=== PATIENT | female | born 1985 | race Caucasian/White ===

== ENCOUNTER 2016-08-20 20:55 | Emergency (ER) | payer OTHER ==
--- NOTE | 2016-08-20 22:15 | ED CLINICAL REPORT ---
Clinical Report - Physicians/Mid Levels [facility] [address] [place] [address] 08/20/2016 20:55 [id number] Time Seen: 22:29 Aug 20 2016. Arrived- By private vehicle. Historian- patient (SO). HISTORY OF PRESENT ILLNESS Location of injuries- (head). Chief Complaint: INJURY TO HEAD. The injury occurred just prior to arrival. Occurred on a street. The patient sustained a blow. Fell. The patient complains of mild pain. No neck pain, loss of consciousness or seizure. Not dazed. (Prior to arrival, patient sustained a blow to her head from a tree. Patient was outside walking a pit bull, when she was dragged by her arm, and into a tree. Denies loss of consciousness. Patient had headache at the time, however none since. Denies any arm pain. Denies any neck pain, Denies abdominal pain.). REVIEW OF SYSTEMS No hearing loss, chest pain or laceration. All systems otherwise negative, except as recorded above. PAST HISTORY Tetanus immunization status is up-to-date. SOCIAL HISTORY Never smoker. No alcohol use or drug use. ADDITIONAL NOTES The nursing notes have not been reviewed. PHYSICAL EXAM Vital Signs: 08/20/2016 22:04 BP: 134/79. HR: 77. RR: 16. O2 saturation: 100%. Temp: 98.1 F. Appearance: Alert. No acute distress. No backboard. Head: Head non-tender. Eyes: Pupils equal, round and reactive to light. EOM intact. No pupillary exam. ENT: No hemotympanum. Dental injury present. Neck: Painless ROM. Neck non-tender. No vertebral tenderness. Posterior neck: No tenderness or swelling. CVS: Heart sounds normal. Pulses normal. Respiratory: Breath sounds normal. Chest nontender. No chest wall injury. Abdomen: Soft. No abdominal tenderness or guarding. Back: No tenderness. ROM normal. Skin: (small erythema at R elbow, non tender, no vesicles, quarter size lesion). Extremities: Normal inspection. Pelvis stable. Neuro: Bernardo Coma Scale: 15- eyes open spontaneously (4); best verbal response- oriented x 3 (5); best motor response- obeys commands (6). Oriented X 3. Mood/affect normal. Speech normal. No motor deficit. No sensory deficit. PROGRESS AND PROCEDURES Course of Care: Here in the ER patient is asymptomatic, and has no concerning signs or symptoms of intracranial hemorrhage, or concussion. No osseous tenderness. The rash on her elbow has been present for a few days, she reports history of impetigo, will start on Bactroban. 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 Patient/family counseled. Disposition: Discharged. CLINICAL IMPRESSION Minor closed head injury. Mild irritative contact dermatitis (R. Elbow). INSTRUCTIONS Apply ice. Do not work for two days. Prescription Medications: Zofran (orally disintegrating tablets) 4 mg: take 1 orally every 6 hours for 3 days as needed for nausea and vomiting. Dispense ten (10). No refill. Substitution is permissible. Bactroban 2% ointment: apply small amount to affected area three times daily for 5 days. Dispense twenty-two (22) grams. No refills. Substitution is permissible. OTC Medications: Take OTC medications according to label instructions. Available over the counter. Acetaminophen (available over the counter): take according to label instructions. Motrin (available over the counter): take according to label instructions. Follow-up: Follow up with your doctor in three as needed. (Electronically signed by Julisa Paula P.A.-C 08/20/2016 22:32)
--- NOTE | 2016-08-20 22:15 | ED CLINICAL REPORT ---
Clinical Report - Physicians/Mid Levels [facility] [address] [place] [address] 08/20/2016 20:55 Patient: NAPOLEON BRODY [facility] [id number] Time Seen: 22:29 Aug 20 2016. Arrived- By private vehicle. Historian- patient (SO). HISTORY OF PRESENT ILLNESS Location of injuries- (head). Chief Complaint: INJURY TO HEAD. The injury occurred just prior to arrival. Occurred on a street. The patient sustained a blow. Fell. The patient complains of mild pain. No neck pain, loss of consciousness or seizure. Not dazed. (Prior to arrival, patient sustained a blow to her head from a tree. Patient was outside walking a pit bull, when she was dragged by her arm, and into a tree. Denies loss of consciousness. Patient had headache at the time, however none since. Denies any arm pain. Denies any neck pain, Denies abdominal pain.). REVIEW OF SYSTEMS No hearing loss, chest pain or laceration. All systems otherwise negative, except as recorded above. PAST HISTORY Tetanus immunization status is up-to-date. SOCIAL HISTORY Never smoker. No alcohol use or drug use. ADDITIONAL NOTES The nursing notes have not been reviewed. PHYSICAL EXAM Vital Signs: 08/20/2016 22:04 BP: 134/79. HR: 77. RR: 16. O2 saturation: 100%. Temp: 98.1 F. Appearance: Alert. No acute distress. No backboard. Head: Head non-tender. Eyes: Pupils equal, round and reactive to light. EOM intact. No pupillary exam. ENT: No hemotympanum. Dental injury present. Neck: Painless ROM. Neck non-tender. No vertebral tenderness. Posterior neck: No tenderness or swelling. CVS: Heart sounds normal. Pulses normal. Respiratory: Breath sounds normal. Chest nontender. No chest wall injury. Abdomen: Soft. No abdominal tenderness or guarding. Back: No tenderness. ROM normal. Skin: (small erythema at R elbow, non tender, no vesicles, quarter size lesion). Extremities: Normal inspection. Pelvis stable. Neuro: Bernardo Coma Scale: 15- eyes open spontaneously (4); best verbal response- oriented x 3 (5); best motor response- obeys commands (6). Oriented X 3. Mood/affect normal. Speech normal. No motor deficit. No sensory deficit. PROGRESS AND PROCEDURES Course of Care: Here in the ER patient is asymptomatic, and has no concerning signs or symptoms of intracranial hemorrhage, or concussion. No osseous tenderness. The rash on her elbow has been present for a few days, she reports history of impetigo, will start on Bactroban. 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 Patient/family counseled. Disposition: Discharged. CLINICAL IMPRESSION Minor closed head injury. Mild irritative contact dermatitis (R. Elbow). INSTRUCTIONS Apply ice. Do not work for two days. Prescription Medications: Zofran (orally disintegrating tablets) 4 mg: take 1 orally every 6 hours for 3 days as needed for nausea and vomiting. Dispense ten (10). No refill. Substitution is permissible. Bactroban 2% ointment: apply small amount to affected area three times daily for 5 days. Dispense twenty-two (22) grams. No refills. Substitution is permissible. OTC Medications: Take OTC medications according to label instructions. Available over the counter. Acetaminophen (available over the counter): take according to label instructions. Motrin (available over the counter): take according to label instructions. Follow-up: Follow up with your doctor in three as needed. (Electronically signed by Julisa Paula P.A.-C 08/20/2016 22:32)
--- NOTE | 2016-08-20 22:15 | ED NURSING NOTES ---
Clinical Report - Nurses [facility] [address] [place] [address] 08/20/2016 20:55 [id number] Triage time 22:04 Aug 20 2016. Acuity: LEVEL 4. Chief Complaint: INJURY TO FOREHEAD. SEPSIS SCREEN: Sepsis Screen. Negative (no infection suspected/documented). JOHN COMA SCORE: [place] Coma Scale: 15- eyes open spontaneously (4); best verbal response- oriented x 4 (5); best motor response- obeys commands (6). --22:08 Jessica Harley R.N. 22:04 08/20/16. BP: 134/79. HR: 77. RR: 16. O2 saturation: 100%. Temp: 98.1 F. Pain level now 5/10. --22:08 Jessica Harley R.N. Weight: 54.4 kg stated. Height/Length: 64 inches Per Patient. BMI: 20.6. --22:03 Jessica Harley R.N. Medications None. --22:05 Jessica Harley R.N. Medication/allergy information source: the patient. --22:08 Jessica Harley R.N. Allergies No Known Drug Allergy. --22:05 Jessica Harley R.N. History Arrived by private vehicle. Historian: patient. Accompanied by friend. This occurred today. Mechanism of injury: a blow. ( was pulled by dog and fell head first into a tree. no loss of consciousness. complains of lightheadedness.). Treatment PER DIEM INTERPRETER: None. PAST MEDICAL HX: Tetanus status: up-to-date. Immunizations: up-to-date. Denies current . SOCIAL HX: Never smoker. No alcohol use or drug use. ABUSE ASSESSMENT: No report of abuse. SELF HARM ASSESSMENT: A self harm assessment was performed. The patient answered "no" to the question "Have you recently felt down, depressed, or hopeless?", "Have you noticed less interest or pleasure in doing things?", "Do you have thoughts of harming or killing yourself?", "Are you here because you tried to hurt yourself?", "Have you ever tried to hurt yourself before today?", "Have you recently had thoughts about harming or killing others?" and "Do you have any dangerous items in your possession?". NUTRITIONAL RISK ASSESSMENT: The nutritional risk assessment revealed no deficiencies. FUNCTIONAL ASSESSMENT: Functional assessment: no impairments noted. LEARNING NEEDS ASSESSMENT: The learning needs assessment revealed no barriers. SKIN INTEGRITY ASSESSMENT: Skin integrity risk assessment completed. No skin integrity risk identified. --22:08 Jessica Harley R.N. PROBLEMS: Mechanism of Injury. Post-Concussive Syndrome. Concussion. Gastritis. Laceration. Vulvovaginitis. Pneumothorax. --22:05 Jessica Harley R.N. ADDITIONAL SURGERIES: Left lung. --22:05 Jessica Harley R.N. Interventions ID band on patient. --22:08 Jessica Harley R.N. PHYSICAL ASSESSMENT 22:08/20/16. GENERAL / NEURO / PSYCH: Alert. Appears in no acute distress. HEENT: Right frontal area: tenderness. Head non-tender. Pupils equal, round and reactive to light. Voice within normal limits. No swelling of head. Mucous membranes are pink. RESPIRATORY: Respirations not labored. CVS: Capillary refill less than 2 seconds. BACK: No neck or back tenderness. SKIN: Skin is warm and dry. --22:10 Jessica Harley R.N. NURSING PROGRESS NOTES 22:08/20/16. Patient identifiers checked. Call light placed in reach. Side rails up x 1. Bed placed in lowest position. Brakes of bed on. Patient ready for evaluation. --22:09 Jessica Harley R.N. DISPOSITION / DISCHARGE 22:24 08/20/16. Departure time: 22:Aug 20 2016. Condition at departure: unchanged and stable. The goals identified in the patient's plan of care were met. No learning barriers present. Reviewed medication(s) side effects, precautions, dosing and course information. Prescription(s) given to the patient. Patient verbalized understanding. Written instructions provided in Russian. The patient was discharged home and accompanied by pilot. She left the Emergency Department ambulatory and via private vehicle. Senior Sql Server Database Developer driving. --22:24 Jessica Harley R.N. 22:04 08/20/16. BP: 134/79. HR: 77. RR: 16. O2 saturation: 100%. Temp: 98.1 F. Pain level now 5/10. --22:24 Jessica Harley R.N. Locked/Released at 08/20/2016 22:25 by Jessica Harley R.N.
--- NOTE | 2016-08-20 22:15 | ED NURSING NOTES ---
Clinical Report - Nurses [facility] [address] [place] [address] 08/20/2016 20:55 [id number] Triage time 22:04 Aug 20 2016. Acuity: LEVEL 4. Chief Complaint: INJURY TO FOREHEAD. SEPSIS SCREEN: Sepsis Screen. Negative (no infection suspected/documented). JOHN COMA SCORE: [place] Coma Scale: 15- eyes open spontaneously (4); best verbal response- oriented x 4 (5); best motor response- obeys commands (6). --22:08 Jessica Harley R.N. 22:04 08/20/16. BP: 134/79. HR: 77. RR: 16. O2 saturation: 100%. Temp: 98.1 F. Pain level now 5/10. --22:08 Jessica Harley R.N. Weight: 54.4 kg stated. Height/Length: 64 inches Per Patient. BMI: 20.6. --22:03 Jessica Harley R.N. Medications None. --22:05 Jessica Harley R.N. Medication/allergy information source: the patient. --22:08 Jessica Harley R.N. Allergies No Known Drug Allergy. --22:05 Jessica Harley R.N. History Arrived by private vehicle. Historian: patient. Accompanied by friend. This occurred today. Mechanism of injury: a blow. ( was pulled by dog and fell head first into a tree. no loss of consciousness. complains of lightheadedness.). Treatment INTERNATIONAL REPRESENTATIVE: None. PAST MEDICAL HX: Tetanus status: up-to-date. Immunizations: up-to-date. Denies current . SOCIAL HX: Never smoker. No alcohol use or drug use. ABUSE ASSESSMENT: No report of abuse. SELF HARM ASSESSMENT: A self harm assessment was performed. The patient answered "no" to the question "Have you recently felt down, depressed, or hopeless?", "Have you noticed less interest or pleasure in doing things?", "Do you have thoughts of harming or killing yourself?", "Are you here because you tried to hurt yourself?", "Have you ever tried to hurt yourself before today?", "Have you recently had thoughts about harming or killing others?" and "Do you have any dangerous items in your possession?". NUTRITIONAL RISK ASSESSMENT: The nutritional risk assessment revealed no deficiencies. FUNCTIONAL ASSESSMENT: Functional assessment: no impairments noted. LEARNING NEEDS ASSESSMENT: The learning needs assessment revealed no barriers. SKIN INTEGRITY ASSESSMENT: Skin integrity risk assessment completed. No skin integrity risk identified. --22:08 Jessica Harley R.N. PROBLEMS: Mechanism of Injury. Post-Concussive Syndrome. Concussion. Gastritis. Laceration. Vulvovaginitis. Pneumothorax. --22:05 Jessica Harley R.N. ADDITIONAL SURGERIES: Left lung. --22:05 Jessica Harley R.N. Interventions ID band on patient. --22:08 Jessica Harley R.N. PHYSICAL ASSESSMENT 22:08/20/16. GENERAL / NEURO / PSYCH: Alert. Appears in no acute distress. HEENT: Right frontal area: tenderness. Head non-tender. Pupils equal, round and reactive to light. Voice within normal limits. No swelling of head. Mucous membranes are pink. RESPIRATORY: Respirations not labored. CVS: Capillary refill less than 2 seconds. BACK: No neck or back tenderness. SKIN: Skin is warm and dry. --22:10 Jessica Harley R.N. NURSING PROGRESS NOTES 22:08/20/16. Patient identifiers checked. Call light placed in reach. Side rails up x 1. Bed placed in lowest position. Brakes of bed on. Patient ready for evaluation. --22:09 Jessica Harley R.N. DISPOSITION / DISCHARGE 22:24 08/20/16. Departure time: 22:Aug 20 2016. Condition at departure: unchanged and stable. The goals identified in the patient's plan of care were met. No learning barriers present. Reviewed medication(s) side effects, precautions, dosing and course information. Prescription(s) given to the patient. Patient verbalized understanding. Written instructions provided in Andorran. The patient was discharged home and accompanied by supervisor joiners. She left the Emergency Department ambulatory and via private vehicle. Medical Imaging Specialist driving. --22:24 Jessica Harley R.N. 22:04 08/20/16. BP: 134/79. HR: 77. RR: 16. O2 saturation: 100%. Temp: 98.1 F. Pain level now 5/10. --22:24 Jessica Harley R.N. Locked/Released at 08/20/2016 22:25 by Jessica Harley R.N.
--- NOTE | 2016-08-20 22:32 | ED DISCHARGE INSTRUCTIONS ---
Patient: NAPOLEON BRODY [facility] [id number] [place] [address] 30y, F Registration Date/Time: 08/20/2016 Minor closed head injury. Mild irritative contact dermatitis (R. Elbow). INSTRUCTIONS Apply ice. Do not work for two days. Prescription Medications: Zofran (orally disintegrating tablets) 4 mg: take 1 orally every 6 hours for 3 days as needed for nausea and vomiting. Dispense ten (10). No refill. Substitution is permissible. Bactroban 2% ointment: apply small amount to affected area three times daily for 5 days. Dispense twenty-two (22) grams. No refills. Substitution is permissible. OTC Medications: Take OTC medications according to label instructions. Available over the counter. Acetaminophen (available over the counter): take according to label instructions. Motrin (available over the counter): take according to label instructions. Follow-up: Follow up with your doctor in three as needed. ADDITIONAL INFORMATION Head Injury, No Wake-Up (Adult) You have had a head injury. It does not appear serious at this time. Symptoms of a more serious problem (concussion, bruising, or bleeding in the brain) may appear later. Therefore, watch for the WARNING SIGNS listed below. Home Care: Your healthcare provider will tell you whether its okay to drive. If so, you can drive yourself home. For the next day or so, be careful when driving or using heavy machinery until you are sure you have no delayed symptoms. During the next 24 hours someone must stay with you to check for the signs below. It is not necessary to stay awake or be awakened during the night. If you have swelling of the face or scalp, apply an ice pack (ice cubes in a plastic bag, wrapped in a towel) for 20 minutes. Do this every 1-2 hours until the swelling starts to go down. Do not use aspirin or ibuprofen (Motrin, Advil) after a head injury.You may use acetaminophen (Tylenol)to control pain, unless another pain medicine was prescribed. [NOTE: If you have chronic liver or kidney disease or ever had a stomach ulcer or GI bleeding, talk with your doctor before using these medicines.] For the next 24 hours: Do not take alcohol, sedatives or medicines that make you sleepy. Avoid strenuous activities. No lifting or straining. If you have had any symptoms of a concussion today (nausea, vomiting, dizziness, confusion, headache, memory loss or if you were knocked out), do not return to sports or any activity that could result in another head injury until all symptoms are gone and you have been cleared by your doctor. A second head injury before fully recovering from the first one can lead to serious brain injury. Follow Up with your doctor if symptoms are not improving after 24 hours, or as directed. [NOTE: A radiologist will review any X-rays or CT scans that were taken. We will notify you of any new findings that may affect your care.] Get Prompt Medical Attention if any of the followingWARNING SIGNS occur: Repeated vomiting Severe or worsening headache or dizziness Unusual drowsiness, or unable to awaken as usual Confusion or change in behavior or speech, memory loss, blurred vision Convulsion (seizure) Increasing scalp or face swelling Redness, warmth or pus from the swollen area Fluid drainage or bleeding from the nose or ears Dermatitis (Non-Specific) Dermatitis is an inflammation of the skin. The exact cause of your rash is not certain. However, this rash does not appear to be an infection or contagious illness. Taking care of the rash at home should help relieve your symptoms. Home Care: Keep the areas of rash clean by washing it daily. This also helps to keep the skin moist. Use a neutral pH soap such as Dove or Lever 2000. Apply a moisturizing lotion after bathing to prevent dry skin. Avoid skin irritants (wool or silk clothing, grease, oils, some medicines, harsh soaps, and detergents). Wear absorbent, soft fabrics next to the skin rather than rough or scratchy materials. Unless another medicine was prescribed, you may use Hydrocortisone cream (which you can get without a prescription) to reduce the inflammation. Follow Up: Make an appointment with your doctor in the next 1 to 2 weeks if your symptoms do not improve with the above measures. Get Prompt Medical Attention if any of the following occur: Increasing area of redness or pain in the skin Yellow crusts or drainage from the rash Joint pain New rash that appears in other areas of the body Fever of 100.4F (38C) or higher, or as directed by your healthcare provider Ondansetron Hydrochloride Oral tablet What is this medicine? ONDANSETRON (on LIANA se maia) is used to treat nausea and vomiting caused by chemotherapy. It is also used to prevent or treat nausea and vomiting after surgery. How should I use this medicine? Take this medicine by mouth with a glass of water. Follow the directions on your prescription label. Take your doses at regular intervals. Do not take your medicine more often than directed. Talk to your aquatics group fitness instructor regarding the use of this medicine in children. Special care may be needed. What side effects may I notice from receiving this medicine? Side effects that you should report to your doctor or health home care companion as soon as possible: allergic reactions like skin rash, itching or hives, swelling of the face, lips or tongue breathing problems dizziness fast or irregular heartbeat feeling faint or lightheaded, falls fever and chills swelling of the hands or feet tightness in the chest Side effects that usually do not require medical attention (report to your doctor or health home care companion if they continue or are bothersome): constipation or diarrhea headache What may interact with this medicine? Do not take this medicine with any of the following medications: -apomorphine -cisapride -dofetilide -dronedarone -pimozide -thioridazine -ziprasidone This medicine may also interact with the following medications: -carbamazepine -phenytoin -rifampicin -tramadol -other medicines that prolong the QT interval (cause an abnormal heart rhythm) What if I miss a dose? If you miss a dose, take it as soon as you can. If it is almost time for your next dose, take only that dose. Do not take double or extra doses. Where should I keep my medicine? Keep out of the reach of children. Store between 2 and 30 degrees C (36 and 86 degrees F). Throw away any unused medicine after the expiration date. What should I tell my health care provider before I take this medicine? They need to know if you have any of these conditions: heart disease history of irregular heartbeat liver disease low levels of magnesium or potassium in the blood an unusual or allergic reaction to ondansetron, granisetron, other medicines, foods, dyes, or preservatives or trying to get breast-feeding What should I watch for while using this medicine? Check with your doctor or health home care companion right away if you have any sign of an allergic reaction. You have been given the following additional information: HEAD INJURY, No Wake-Up (Adult) Dermatitis, Non-Specific Ondansetron Hydrochloride Oral tablet Do not work for two days. (Electronically signed by Julisa Paula P.A.-C 08/20/2016 22:32)
--- NOTE | 2016-08-20 22:32 | ED MED RECONCILIATION SUMMARY ---
Patient: NAPOLEON BRODY Medication Reconciliation Report [facility] VisitID: [id number] [place] [address] 30y, F Registration Date/Time: 08/20/2016 Weight: 54.4 kg Height/Length: 64 in. BMI: 20.6 ALLERGIES: No Known Drug Allergy The patient's Home Medications are listed below: NONE. The source(s) of the original Home Medication information: patient The following Medications were given to the patient in the Emergency Department: None. The following Medications were prescribed to the patient: Take OTC medications according to label instructions. Available over the counter. -- Julisa Paula, P.A.-C Acetaminophen (available over the counter): take according to label instructions. -- Julisa Paula, P.A.-C Motrin (available over the counter): take according to label instructions. -- Julisa Paula, P.A.-C Zofran (orally disintegrating tablets) 4 mg: take 1 orally every 6 hours for 3 days as needed for nausea and vomiting. Dispense ten (10). No refill. Substitution is permissible. -- Julisa Paula, P.A.-C Bactroban 2% ointment: apply small amount to affected area three times daily for 5 days. Dispense twenty-two (22) grams. No refills. Substitution is permissible. -- Julisa Paula, P.A.-C
--- NOTE | 2016-08-20 22:32 | ED MED RECONCILIATION SUMMARY ---
Patient: NAPOLEON BRODY Medication Reconciliation Report [facility] VisitID: [id number] [place] [address] 30y, F Registration Date/Time: 08/20/2016 Weight: 54.4 kg Height/Length: 64 in. BMI: 20.6 ALLERGIES: No Known Drug Allergy The patient's Home Medications are listed below: NONE. The source(s) of the original Home Medication information: patient The following Medications were given to the patient in the Emergency Department: None. The following Medications were prescribed to the patient: Take OTC medications according to label instructions. Available over the counter. -- Julisa Paula, P.A.-C Acetaminophen (available over the counter): take according to label instructions. -- Julisa Paula, P.A.-C Motrin (available over the counter): take according to label instructions. -- Julisa Paula, P.A.-C Zofran (orally disintegrating tablets) 4 mg: take 1 orally every 6 hours for 3 days as needed for nausea and vomiting. Dispense ten (10). No refill. Substitution is permissible. -- Julisa Paula, P.A.-C Bactroban 2% ointment: apply small amount to affected area three times daily for 5 days. Dispense twenty-two (22) grams. No refills. Substitution is permissible. -- Julisa Paula, P.A.-C
--- NOTE | 2016-08-20 22:32 | ED MAR SUMMARY ---
..... Medication Administration Record [facility] [address], [place] [id number] Patient: NAPOLEON BRODY Visit ID: [id number] 30y, F Weight: 54.4 kg Height/Length: 64 in BMI: 20.6 ALLERGIES: No Known Drug Allergy
--- NOTE | 2016-08-20 22:32 | ED MAR SUMMARY ---
..... Medication Administration Record [facility] [address] [place] [place] [id number] Patient: NAPOLEON BRODY Visit ID: [id number] 30y, F Weight: 54.4 kg Height/Length: 64 in BMI: 20.6 ALLERGIES: No Known Drug Allergy
== END 2016-08-20 22:25 | disposition home or self-care (01) ==
LOC: ED SRH 20:55
DX: S09.90XA Unspecified injury of head, initial encounter (principal); L24.9 Irritant contact dermatitis, unspecified cause; W22.09XA Striking against other stationary object, initial encounter; Y93.K1 Activity, walking an animal; Y92.410 Unspecified street and highway as the place of occurrence of the external cause; Y99.9 Unspecified external cause status